=== PATIENT | male | born 1985 | race Caucasian/White ===

== ENCOUNTER 2021-05-08 16:17 | Outpatient (CLI) | payer OTHER | END 2021-05-08 16:18 | disposition home or self-care (01) | LOC: COV 16:17 | PROVIDERS: ATTEND Family Medicine | DX: M79.10 Myalgia, unspecified site (principal); R51.9 Headache, unspecified; R07.0 Pain in throat; Z20.822 Contact with and (suspected) exposure to COVID-19 ==